=== PATIENT | male | born 1985 | race African-American/Black ===

== ENCOUNTER 2016-12-25 07:51 | Emergency (ER) | payer OTHER ==
[~2016-12-25] VITALS: Ht 180.3 cm; Wt 77.1 kg
[~2016-12-25 07:51] MED LIST: ALBU0.0939 IH; PRED20TA5 PO
[2016-12-25 07:56] VITALS: BP 145/79
--- NOTE | 2016-12-25 07:59 | NUR ---
Patient ambulated to bed 07.
--- NOTE | 2016-12-25 08:00 | NUR ---
31/M BIB SELF C/O COUGH ,SOB AND SORE THROAT X2 DAYS. HX ASTHMA. PT STATES HAS DIARRHEA X2 EPISODES THIS MORNING. DENIES N/V; SKIN IS PINK/WARM/DRY; AAOX4 WITH EVEN AND STEADY GAIT; LUNGS CONGESTED BL; HR EVEN AND REGULAR; PATIENT STATES SORE THROAT ;PAIN OF 9/10 AT THIS TIME; VSS; PATIENT POSITIONED FOR COMFORT; HOB ELEVATED; BEDRAILS UP X2; BED DOWN. ER MD MADE AWARE OF PT STATUS.
[2016-12-25] MEDS ORDERED: ALBUTEROL SULFATE/IPRATROPIU 3 ML SOL IH ONE (08:05)
[2016-12-25] MEDS ORDERED: predniSONE 20 MG TAB PO ONE (08:05)
--- NOTE | 2016-12-25 08:10 | NUR ---
Kiko mccarthy in [facility] - 12/25/16 at 0855 by MED1 RT AT BEDSIDE
--- NOTE | 2016-12-25 08:10 | NUR ---
RT at bedside to give patient breathing treatment.
--- NOTE | 2016-12-25 08:12 | NUR ---
ER MD DR ATKINSON EVALUATING PT AT BEDSIDE.
--- NOTE | 2016-12-25 08:38 | NUR ---
Patient going to XRAY via wheelchair per tech.
--- NOTE | 2016-12-25 08:44 | NUR ---
Patient back from XRAY via wheelchair per tech.
[2016-12-25] MEDS ORDERED: PENICILLIN G BENZATHINE L-A 2.4 MU/4 ML SYR IM ONE (09:25)
[2016-12-25] MEDS ORDERED: ACETAMIN/CODEINE 120/12MG-5ML 5 ML UDC PO ONE (09:25)
[2016-12-25 09:45] VITALS: BP 120/68
--- NOTE | 2016-12-25 09:45 | NUR ---
Patient discharged with v/s stable. Written and verbal after care instructions given and explained. Patient alert, oriented and verbalized understanding of instructions. Ambulatory with steady gait. All questions addressed prior to discharge. ID band removed. Patient advised to follow up with PMD. Rx of TYLENOL W/ CODEINE, MEDROL DOSEPAK & ALBUTEROL given. Patient educated on indication of medication including possible reaction and side effects. Opportunity to ask questions provided and answered.
== END 2016-12-25 09:45 | disposition home or self-care (01) ==
LOC: MED 07:51
DX: J02.0 Streptococcal pharyngitis (principal); J45.901 Unspecified asthma with (acute) exacerbation; Z91.19 Patient's noncompliance with other medical treatment and regimen; Z88.8 Allergy status to other drugs, medicaments and biological substances
CPT/HCPCS: 36415; 71020; 87081; 87804; 94640; 96372; 99285; J0561; J7030; J7512; J7620

== ENCOUNTER 2017-01-13 07:36 | Emergency (ER) | payer OTHER ==
[~2017-01-13] VITALS: Ht 180.3 cm; Wt 78.5 kg
[2017-01-13 07:51] VITALS: BP 127/77
--- NOTE | 2017-01-13 07:58 | NUR ---
Patient ambulated to bed 3. RN evaluating patient at bedside.
--- NOTE | 2017-01-13 08:11 | NUR ---
31/M TO ED WITH C/O CHEST CONGESTION AND SOB X1 DAY. PT STATES HE DOESNT HAVE ASTHMA MEDS AT HOME. CHEST CONGESTION PAIN /. STATES HE HAS PRODUCTIVE COUGH. WHEEZING HEARD BILAT UPON EXPIRATION. HR EVEN AND REGULAR. AAOX4. VSS. NO SIGNS OF DISTRESS.
[2017-01-13] MEDS: ALBUTEROL SULFATE/IPRATROPIU 3 ML SOL IH ONE (08:40)
[2017-01-13] MEDS: predniSONE 20 MG TAB PO ONE (09:06)
[2017-01-13 10:08] VITALS: BP 127/77
--- NOTE | 2017-01-13 10:08 | NUR ---
Patient discharged with v/s stable. Written and verbal after care instructions given and explained. Patient alert, oriented and verbalized understanding of instructions. Ambulatory with steady gait. All questions addressed prior to discharge. ID band removed. Patient advised to follow up with PMD. Rx of MEDROL given. Patient educated on indication of medication including possible reaction and side effects. Opportunity to ask questions provided and answered.
== END 2017-01-13 10:08 | disposition home or self-care (01) ==
LOC: MED 07:36
DX: J45.901 Unspecified asthma with (acute) exacerbation (principal); Z88.8 Allergy status to other drugs, medicaments and biological substances
CPT/HCPCS: 71020; 94640; 99284; J7512; J7620

== ENCOUNTER 2018-09-16 03:10 | Emergency (ER) | payer OTHER ==
[~2018-09-16] VITALS: Ht 180.3 cm; Wt 79.4 kg
[2018-09-16 03:19] VITALS: BP 145/75
--- NOTE | 2018-09-16 03:19 | NUR ---
PT TAKEN TO BED 9
--- NOTE | 2018-09-16 03:25 | NUR ---
PT TO ED WITH C/O SOB AND CONGESTION X 2 DAYS. PT REPROTS INCREASING CONGESTION OVER 2 DAYS. PT REPORTS THAT HE IS OUT OF HOME RX. NO DISTRESS NOTED. PT ABLE TO SPEAK IN FULL SENTECES WITHOUT DIFFICULTY. LUNG SOUNDS CLEAR BILATERALLY. PT PLACED INTO BED, PENDING MD ROMERO. ER MD YIP MADE AWARE OF PT STATUS. PMH--ASTHMA RX--ALBUTEROL, ATROVENT, PREDNISONE
--- NOTE | 2018-09-16 03:30 | NUR ---
Dr. Koroma evaluating patient at bedside.
[2018-09-16] MEDS ORDERED: ALBUTEROL SULFATE/IPRATROPIU 3 ML SOL IH ONE (03:40)
--- NOTE | 2018-09-16 03:40 | NUR ---
Respiratory Therapist at bedside for respiratory intervention.
[2018-09-16 03:54] VITALS: BP 145/75
--- NOTE | 2018-09-16 03:55 | NUR ---
Patient discharged with v/s stable. Written and verbal after care instructions given and explained. Patient alert, oriented and verbalized understanding of instructions. Ambulatory with steady gait. All questions addressed prior to discharge. ID band removed. Patient advised to follow up with PMD. Rx of PREDNISONE, ALBUTEROL, ATROVENT given. Patient educated on indication of medication including possible reaction and side effects. Opportunity to ask questions provided and answered.
== END 2018-09-16 03:55 | disposition home or self-care (01) ==
LOC: MED 03:10
DX: J45.901 Unspecified asthma with (acute) exacerbation (principal); R03.0 Elevated blood-pressure reading, without diagnosis of hypertension; Z79.899 Other long term (current) drug therapy; Z88.8 Allergy status to other drugs, medicaments and biological substances
CPT/HCPCS: 94640; 99283; J7620

== ENCOUNTER 2019-07-22 00:24 | Emergency (ER) | payer OTHER ==
[~2019-07-22] VITALS: Ht 180.3 cm; Wt 83.0 kg
[2019-07-22 00:40] VITALS: BP 137/83
--- NOTE | 2019-07-22 00:40 | NUR ---
TO BED # 06 AMBULATORY
--- NOTE | 2019-07-22 00:50 | NUR ---
34 Y/O MALE ARRIVED TO ED C/O DIFFICULTY BREATHING X 3-4 DAYS. DENIES ANY FEVER, N,V,D. DENIES PAIN. LUNG SOUNDS WHEEZING ON RIGHT LOBE, LEFT LOBE CLEAR. NO RESP DISTRESS NOTED. NO USE OF ACCESSORY MUSCLE. SPO2 98% RA. VSS. COUGH WITH PRODUCTIVE PHLEGM PRESENT. ALLERGIES: ROBUTUSSIN. PMH: ASTHMA, MARIJUANA USE.
[2019-07-22] MEDS ORDERED: ALBUTEROL SULFATE/IPRATROPIU 3 ML SOL IH ONE (01:05)
--- NOTE | 2019-07-22 01:06 | NUR ---
RT AT BEDSIDE.
[2019-07-22 01:38] VITALS: BP 137/83
--- NOTE | 2019-07-22 01:38 | NUR ---
Patient discharged with v/s stable. Written and verbal after care instructions given and explained. Patient alert, oriented and verbalized understanding of instructions. Ambulatory with steady gait. All questions addressed prior to discharge. ID band removed. Patient advised to follow up with PMD. Rx of PREDNISONE, ALBUTEROL AEROSOL, ALBUTEROL SULFATE ADE, ATROVENT given. Patient educated on indication of medication including possible reaction and side effects. Opportunity to ask questions provided and answered.
== END 2019-07-22 01:38 | disposition home or self-care (01) ==
LOC: MED 00:24
DX: J45.901 Unspecified asthma with (acute) exacerbation (principal); R03.0 Elevated blood-pressure reading, without diagnosis of hypertension; F12.10 Cannabis abuse, uncomplicated; Z88.8 Allergy status to other drugs, medicaments and biological substances; Z79.899 Other long term (current) drug therapy
CPT/HCPCS: 94640; 99283; J7620

== ENCOUNTER 2019-12-23 08:48 | Emergency (ER) | payer OTHER ==
[~2019-12-23] VITALS: Ht 180.3 cm; Wt 82.6 kg
[2019-12-23 08:52] VITALS: BP 137/76
--- NOTE | 2019-12-23 09:00 | NUR ---
PT TO ER BED 4
--- NOTE | 2019-12-23 09:04 | NUR ---
34 YO MALE CO SOB D/T ASTHMA SINCE YESTERDAY. PT TAKES ALBUTEROL, ATROVENT AND PREDNISONE AT HOME BUT IS CURRENTLY OUT OF MEDS. BL WHEEZES IN THE LOWER BASES HEARD. O2 LEVELS STABLE. PT HAS SYMMETRICAL CHEST RISE. PT HAS ASTHMA BUT NO OTHER HX.
--- NOTE | 2019-12-23 09:10 | NUR ---
DR. THOMPSON IS EVALUATING AT BEDSIDE.
[2019-12-23 09:23] VITALS: BP 137/76
--- NOTE | 2019-12-23 09:24 | NUR ---
Patient discharged with v/s stable. Written and verbal after care instructions given and explained. Patient alert, oriented and verbalized understanding of instructions. Ambulatory with steady gait. All questions addressed prior to discharge. ID band removed. Patient advised to follow up with PMD. Rx of ALBUTEROL, DUONEB, ATROVENT, ALBUTEROL SULFATE AND PREDNISONE given. Patient educated on indication of medication including possible reaction and side effects. Opportunity to ask questions provided and answered.
== END 2019-12-23 09:24 | disposition home or self-care (01) ==
LOC: MED 08:48
DX: J45.901 Unspecified asthma with (acute) exacerbation (principal); Z79.899 Other long term (current) drug therapy; Z88.8 Allergy status to other drugs, medicaments and biological substances
CPT/HCPCS: 99283

== ENCOUNTER 2020-05-07 22:07 | Emergency (ER) | payer OTHER ==
[~2020-05-07] VITALS: Ht 180.3 cm; Wt 85.7 kg
[2020-05-07 22:22] VITALS: BP 110/75
--- NOTE | 2020-05-07 22:31 | NUR ---
PT HAS HX OF ASTHMA AND RAN OUT OF HIS MEDS YESTERDAY. HAS BEEN HAVING WHEEZING AND COUGHING FOR PAST DAY. AFEBRILE, DENIES SOB, O2 SAT 98% ON ROOM AIR. WHEEZING NOTED UPON AUSCULTATION. BED PLACED IN LOWEST POSITION AND SIDERAIL UP X 1. ALLERGY - ROBITUSSIN HX - ASTHMA
[2020-05-07] MEDS: predniSONE 20 MG TAB PO ONE (23:41)
--- NOTE | 2020-05-07 23:41 | NUR ---
RESPIRATORY AT BEDSIDE
[2020-05-07] MEDS: ALBUTEROL 0.083% 2.5 MG/3 ML NEBU INH ONE (23:42)
[2020-05-07] MEDS: ALBUTEROL SULFATE/IPRATROPIU 3 ML SOL IH ONE (23:50)
[2020-05-08 00:11] VITALS: BP 110/75
--- NOTE | 2020-05-08 00:12 | NUR ---
Patient discharged with v/s stable. Written and verbal after care instructions given and explained. Patient alert, oriented and verbalized understanding of instructions. Ambulatory with steady gait. All questions addressed prior to discharge. ID band removed. Patient advised to follow up with PMD. Rx of ATROVENT AND PREDNISONE given. Patient educated on indication of medication including possible reaction and side effects. Opportunity to ask questions provided and answered.
== END 2020-05-08 00:11 | disposition home or self-care (01) ==
LOC: MED 22:07
DX: J45.901 Unspecified asthma with (acute) exacerbation (principal); F12.90 Cannabis use, unspecified, uncomplicated; Z79.899 Other long term (current) drug therapy; Z88.8 Allergy status to other drugs, medicaments and biological substances
CPT/HCPCS: 94640; 99283; J7512; J7613

== ENCOUNTER 2020-12-15 06:38 | Emergency (ER) | payer OTHER ==
[~2020-12-15] VITALS: Ht 182.9 cm; Wt 88.5 kg
[2020-12-15 06:44] VITALS: BP 136/82
--- NOTE | 2020-12-15 06:44 | NUR ---
TO BED AMBULATORY
--- NOTE | 2020-12-15 06:55 | NUR ---
35 Y/O MALE C/O MED REFILL. PT STATES CHEST TIGHTNESS, SHARP 8/10 PAIN SINCE YESTERDAY. LUNG SOUNDS WHEEZING. STATES HE RAN OUT OF HIS ASTHMA MEDICATIONS. VSS. ON ROOM AIR. DENIES RECENT FEVER. MEDHX: ASTHMA ALLERGIES: GUAIFENESIN
--- NOTE | 2020-12-15 07:07 | NUR ---
Dr. Galo examining patient.
[2020-12-15] MEDS ORDERED: ALBUTEROL SULFATE/IPRATROPIU 3 ML SOL IH ONE (07:10)
[2020-12-15] MEDS ORDERED: predniSONE 20 MG TAB PO ONE (07:10)
--- NOTE | 2020-12-15 07:13 | NUR ---
Pt report given to KHOI CASTANEDA. Transfer of care at this time.
--- NOTE | 2020-12-15 07:14 | NUR ---
HANDOFF RECEIVED FROM PROGRAM STRATEGIST LEONEL MURPHY FOR CONTINUITY OF CARE
--- NOTE | 2020-12-15 07:20 | NUR ---
[facility] THERAPY AND RESPIRATORY DRUG GIVEN ORDERED
--- NOTE | 2020-12-15 07:21 | NUR ---
PT ALERT AND ORIENTED X4, SITTING UP IN BED. RT AT BEDSIDE ADMINISTERING BREATHING TREATMENT. MEDICATIONS ADMINISTERED PER ORDER, PT TOLERATED WELL.
[2020-12-15] MEDS ORDERED: PRED20TA5 PO (07:39)
[2020-12-15] MEDS ORDERED: ALBU0.63 NEB (07:39)
[2020-12-15] MEDS ORDERED: ATRMDI IH (07:39)
[2020-12-15] MEDS ORDERED: ALBU0.0912 IH (07:39)
--- NOTE | 2020-12-15 07:48 | NUR ---
Patient discharged with v/s stable. Written and verbal after care instructions given and explained. Patient alert, oriented and verbalized understanding of instructions. Ambulatory with steady gait. All questions addressed prior to discharge. ID band removed. Patient advised to follow up with PMD. Rx of prednisone, ventolin, atrovent, and albuterol given. Patient educated on indication of medication including possible reaction and side effects. Opportunity to ask questions provided and answered.
[2020-12-15 07:49] VITALS: BP 136/82
== END 2020-12-15 07:48 | disposition home or self-care (01) ==
LOC: MED 06:38
DX: J45.909 Unspecified asthma, uncomplicated (principal); Z76.0 Encounter for issue of repeat prescription; Z88.8 Allergy status to other drugs, medicaments and biological substances; Z79.899 Other long term (current) drug therapy
CPT/HCPCS: 94640; 99283; J7512

== ENCOUNTER 2021-01-17 07:20 | Emergency (ER) | payer OTHER ==
[~2021-01-17] VITALS: Ht 182.9 cm; Wt 87.1 kg
[~2021-01-17 07:20] MED LIST changes: +ALBU0.0912 IH; +ALBU0.63 NEB; +ATRMDI IH
[2021-01-17 07:23] VITALS: BP 139/72
[2021-01-17] MEDS ORDERED: ALBUTEROL SULFATE/IPRATROPIU 3 ML SOL IH ONE (07:35)
[2021-01-17] MEDS ORDERED: predniSONE 20 MG TAB PO ONE (07:35)
[2021-01-17] MEDS ORDERED: PRED20TA5 PO (07:41)
[2021-01-17] MEDS ORDERED: ATRN INH (07:41)
[2021-01-17] MEDS ORDERED: ALBU-71 NEB (07:41)
[2021-01-17] MEDS ORDERED: ALBU0.0912 IH (07:41)
[2021-01-17 08:09] VITALS: BP 139/72
== END 2021-01-17 08:10 | disposition home or self-care (01) ==
LOC: MED 07:20
DX: J45.901 Unspecified asthma with (acute) exacerbation (principal); Z76.0 Encounter for issue of repeat prescription; Z88.8 Allergy status to other drugs, medicaments and biological substances; Z79.899 Other long term (current) drug therapy
CPT/HCPCS: 94640; 99283; J7512

== ENCOUNTER 2021-03-02 07:24 | Emergency (ER) | payer OTHER ==
[~2021-03-02] VITALS: Ht 180.3 cm; Wt 93.0 kg
[~2021-03-02 07:24] MED LIST changes: +ALBU-71 NEB; +ATRN INH
[2021-03-02 07:35] VITALS: BP 147/85
--- NOTE | 2021-03-02 07:39 | NUR ---
PT AMBULATED TO BED 9.
--- NOTE | 2021-03-02 07:54 | NUR ---
Pt bib self for right ankle pain. Per pt he was roller skating last night and fell. Denies hitting head. Denies LOC. Denies N/V. Pt elevated extremity, applied ice, and took Motrin 800mg at 0030. Current pain level 9/10, throbbing pain. Swelling noted to right ankle. Allergies: guaifenesin Med hx: asthma
--- NOTE | 2021-03-02 07:55 | NUR ---
MD Rojas evaluating pt at bedside
--- NOTE | 2021-03-02 08:16 | NUR ---
Xray at bedside
[2021-03-02] MEDS ORDERED: IBUP-2213 PO (08:50)
--- NOTE | 2021-03-02 09:07 | NUR ---
Patient discharged with v/s stable. Written and verbal after care instructions given and explained. Patient alert, oriented and verbalized understanding of instructions. Ambulatory with steady gait. All questions addressed prior to discharge. ID band removed. Patient advised to follow up with PMD. Rx of Motrin 600mg was given. Patient educated on indication of medication including possible reaction and side effects. Opportunity to ask questions provided and answered.
[2021-03-02 09:08] VITALS: BP 132/86
== END 2021-03-02 09:07 | disposition home or self-care (01) ==
LOC: MED 07:24
DX: S93.491A Sprain of other ligament of right ankle, initial encounter (principal); W18.39XA Other fall on same level, initial encounter; Y93.89 Activity, other specified; Y92.89 Other specified places as the place of occurrence of the external cause; Y99.8 Other external cause status
CPT/HCPCS: 73610; 99283

== ENCOUNTER 2021-03-07 07:03 | Emergency (ER) | payer OTHER ==
[~2021-03-07] VITALS: Ht 180.3 cm; Wt 89.8 kg
[~2021-03-07 07:03] MED LIST changes: +IBUP-2213 PO
[2021-03-07 07:08] VITALS: BP 131/78
--- NOTE | 2021-03-07 07:12 | NUR ---
Patient ambulated to bed 7. RN evaluating the patient at bedside.
--- NOTE | 2021-03-07 07:16 | NUR ---
Dr. Piña at pt bedside for further evaluation.
--- NOTE | 2021-03-07 07:24 | NUR ---
35/M presents to ED with c/o right ankle pain. Patient states he "sprained" his ankle one week ago and was icing the site daily, stating he got an "ice burn" on his right ankle. Water filled blister noted to right ankle, patient states 6/10 sharp constant pain that worsens with ambulation. Reports taking motrin at home with mild relief, denies fever, chills. Patient able to ambulate without assistance with steady gait.
[2021-03-07 07:28] VITALS: BP 131/78
--- NOTE | 2021-03-07 07:29 | NUR ---
Patient discharged with v/s stable. Written and verbal after care instructions given and explained. Patient verbalized understanding. Ambulatory with steady gait. All questions addressed prior to discharge. Advised to follow up with PMD.
== END 2021-03-07 07:29 | disposition home or self-care (01) ==
LOC: MED 07:03
DX: S93.401A Sprain of unspecified ligament of right ankle, initial encounter (principal); F12.10 Cannabis abuse, uncomplicated; J45.909 Unspecified asthma, uncomplicated; Z88.8 Allergy status to other drugs, medicaments and biological substances; X58.XXXA Exposure to other specified factors, initial encounter; Y93.89 Activity, other specified; Y92.89 Other specified places as the place of occurrence of the external cause; Y99.8 Other external cause status
CPT/HCPCS: 99281

== ENCOUNTER 2021-03-21 08:09 | Emergency (ER) | payer OTHER ==
[~2021-03-21] VITALS: Ht 180.3 cm; Wt 92.1 kg
[2021-03-21 08:19] VITALS: BP 139/82
--- NOTE | 2021-03-21 08:29 | NUR ---
Patient to lobby for open available bed.
--- NOTE | 2021-03-21 09:42 | NUR ---
WENT OUT TO CALL FOR [facility] AND PT WAS NOT FOUND IN LOBBY. WENT OUTSIDE AND LOOKED IN COVID TENT, NO ONE OUTSIDE. PATIENT LEFT WITHOUT BEING SEEN BY DR. ROUSSEAU. NO FURTHER CARE PROVIDED FOR PATIENT.
== END 2021-03-21 09:42 | disposition left against medical advice (07) ==
LOC: MED 08:09
DX: R06.02 Shortness of breath (principal); Z53.21 Procedure and treatment not carried out due to patient leaving prior to being seen by health care provider

== ENCOUNTER 2021-04-08 06:14 | Emergency (ER) | payer OTHER ==
[~2021-04-08] VITALS: Ht 180.3 cm; Wt 86.2 kg
[2021-04-08 06:22] VITALS: BP 134/79
--- NOTE | 2021-04-08 06:24 | NUR ---
To ED bed 01
[2021-04-08] MEDS ORDERED: ALBUTEROL 0.083% 2.5 MG/3 ML NEBU INH ONE (06:30)
[2021-04-08] MEDS ORDERED: predniSONE 20 MG TAB PO ONE (06:30)
--- NOTE | 2021-04-08 06:30 | NUR ---
36 YO/M BIB SELF W C/O OF ASTHMA EXACCERBATION REPORTING SOB, WHEEZING, AND MILD COUGHING OF PHLEGM X2DAYS. PATIENT DENIES PAIN OR CHEST PAIN. EXPIRATORY WHEEZING AUSCULTATED. BREATHING EVEN AND UNLABORED CONNECTED TO MONITOR W 17RR, 99O2 SAT, 70HR. PATIENT DENIES ANY FEVER N/V/D. PATIENT SPEAKING IN FULL SENTENCES. PATIENT SITTING IN BED USING HIS PHONE. BED LOCKED IN LOWEST POSITION X1 SIDERAIL UP. NAD NOTED, WILL CONTINUE TO MONITOR. PMH:ASTHMA ALLERGIES: GUAIFENESIN
[2021-04-08] MEDS ORDERED: ATRMDI IH (06:37)
[2021-04-08] MEDS ORDERED: ATRN INH (06:37)
[2021-04-08] MEDS ORDERED: ALBU-71 NEB (06:37)
[2021-04-08] MEDS ORDERED: ALBU0.0912 IH (06:37)
[2021-04-08] MEDS ORDERED: PRED20TA5 PO (06:37)
--- NOTE | 2021-04-08 06:40 | NUR ---
[facility] THERAPY AND RESPIRATORY DRUG GIVEN ORDERED
[2021-04-08] MEDS ORDERED: FLO110 IH (07:06)
--- NOTE | 2021-04-08 07:08 | NUR ---
PATIENT REPORTS NO MORE SOB S/P PREDNISONE AND BREATHING TREATMENT.
[2021-04-08 07:09] VITALS: BP 134/79
--- NOTE | 2021-04-08 07:09 | NUR ---
Patient discharged with v/s stable. Written and verbal after care instructions given and explained. Patient alert, oriented and verbalized understanding of instructions. Ambulatory with steady gait. All questions addressed prior to discharge. ID band removed. Patient advised to follow up with PMD. Rx of ALBUTEROL SULFATE, IPRATROPIUM BROMIDE, PREDNISONE given. Patient educated on indication of medication including possible reaction and side effects. Opportunity to ask questions provided and answered.
== END 2021-04-08 07:09 | disposition home or self-care (01) ==
LOC: MED 06:14
DX: J45.901 Unspecified asthma with (acute) exacerbation (principal); Z88.1 Allergy status to other antibiotic agents; Z79.899 Other long term (current) drug therapy
CPT/HCPCS: 94640; 99283; J7512; J7613

== ENCOUNTER 2021-09-14 03:31 | Emergency (ER) | payer OTHER ==
[~2021-09-14] VITALS: Ht 180.3 cm; Wt 95.3 kg
[~2021-09-14 03:31] MED LIST changes: +FLO110 IH
[2021-09-14 03:35] VITALS: BP 124/76
[2021-09-14] MEDS ORDERED: ALBUTEROL SULFATE/IPRATROPIU 3 ML SOL IH ONE (03:40)
[2021-09-14] MEDS ORDERED: predniSONE 20 MG TAB ONE (03:58)
[2021-09-14] MEDS ORDERED: predniSONE 20 MG TAB PO ONE (04:00)
[2021-09-14] MEDS ORDERED: ATRN INH (04:18)
[2021-09-14] MEDS ORDERED: ALBU0.0912 IH (04:18)
[2021-09-14] MEDS ORDERED: ALBU-71 NEB (04:18)
[2021-09-14] MEDS ORDERED: ATRMDI IH (04:18)
[2021-09-14] MEDS ORDERED: PRED20TA5 PO (04:18)
[2021-09-14] MEDS ORDERED: FLO110 IH (04:19)
[2021-09-14 04:22] VITALS: BP 124/76
--- NOTE | 2021-09-14 04:22 | NUR ---
Patient discharged with v/s stable. Written and verbal after care instructions given and explained. Patient alert, oriented and verbalized understanding of instructions. Ambulatory with steady gait. All questions addressed prior to discharge. ID band removed. Patient advised to follow up with PMD. Rx of ALBUTEROL, PROVENTIL, ATROVENT MDI, ATROVENT NEB, FLOVENT, DELTASONE given. Patient educated on indication of medication including possible reaction and side effects. Opportunity to ask questions provided and answered.
== END 2021-09-14 04:22 | disposition home or self-care (01) ==
LOC: MED 03:31
DX: J45.901 Unspecified asthma with (acute) exacerbation (principal); Z79.899 Other long term (current) drug therapy; Z79.1 Long term (current) use of non-steroidal anti-inflammatories (NSAID); Z79.51 Long term (current) use of inhaled steroids; Z88.8 Allergy status to other drugs, medicaments and biological substances
CPT/HCPCS: 94640; 99283; J7512

== ENCOUNTER 2021-11-16 06:11 | Emergency (ER) | payer OTHER ==
[~2021-11-16] VITALS: Ht 180.3 cm; Wt 93.9 kg
[2021-11-16 06:18] VITALS: BP 127/80
[2021-11-16] MEDS ORDERED: ALBUTEROL SULFATE/IPRATROPIU 3 ML SOL IH ONE ×2 (06:55→06:58)
[2021-11-16] MEDS ORDERED: predniSONE 20 MG TAB PO ONE (06:55)
[2021-11-16] MEDS ORDERED: ATRMDI IH (07:11)
[2021-11-16] MEDS ORDERED: ALBU0.0912 INH (07:11)
[2021-11-16] MEDS ORDERED: PRED20TA5 PO (07:11)
[2021-11-16 07:58] VITALS: BP 148/93
== END 2021-11-16 07:56 | disposition home or self-care (01) ==
LOC: MED 06:11
DX: J45.901 Unspecified asthma with (acute) exacerbation (principal); F12.90 Cannabis use, unspecified, uncomplicated; Z79.899 Other long term (current) drug therapy; Z88.8 Allergy status to other drugs, medicaments and biological substances
CPT/HCPCS: 71045; 94640; 94760; 99283; J7512; Q0092

== ENCOUNTER 2022-06-24 06:00 | Emergency (ER) | payer OTHER ==
[~2022-06-24] VITALS: Ht 180.3 cm; Wt 89.8 kg
[~2022-06-24 06:00] MED LIST changes: +ALBU0.0912 INH
[2022-06-24 06:11] VITALS: BP 149/89
--- NOTE | 2022-06-24 06:11 | NUR ---
TO BED AMBULATORY
[2022-06-24] MEDS ORDERED: ALBUTEROL 0.083% 2.5 MG/3 ML NEBU INH ONE (06:30)
[2022-06-24] MEDS ORDERED: predniSONE 20 MG TAB PO ONE (06:30)
--- NOTE | 2022-06-24 06:40 | NUR ---
RT AT BEDSIDE
[2022-06-24] MEDS ORDERED: ALBU0.0912 IH (06:46)
[2022-06-24] MEDS ORDERED: PRED20TA5 PO (06:46)
--- NOTE | 2022-06-24 07:00 | NUR ---
PATIENT STATED THAT HE WAS FEELING BETTER AND WAS READY TO GO HOME. ERMD MADE AWRE.
[2022-06-24 07:05] VITALS: BP 135/89
[2022-06-24] MEDS ORDERED: ALBU0.63 NEB (07:05)
--- NOTE | 2022-06-24 07:05 | NUR ---
Patient discharged with v/s stable. Written and verbal after care instructions given and explained. Patient alert, oriented and verbalized understanding of instructions. Ambulatory with steady gait. All questions addressed prior to discharge. ID band removed. Patient advised to follow up with PMD. Rx of ALBUTEROL, AND PREDNISONE given. Patient educated on indication of medication including possible reaction and side effects. Opportunity to ask questions provided and answered.
== END 2022-06-24 07:05 | disposition home or self-care (01) ==
LOC: MED 06:00
DX: J45.901 Unspecified asthma with (acute) exacerbation (principal)
CPT/HCPCS: 94640; 94760; 99283; J7512; J7613

== ENCOUNTER 2022-10-21 07:40 | Emergency (ER) | payer OTHER ==
[~2022-10-21] VITALS: Ht 180.3 cm; Wt 83.9 kg
[2022-10-21 07:44] VITALS: BP 135/89
--- NOTE | 2022-10-21 08:25 | NUR ---
ASSUMED PATIENT CARE, CONCUR TO PRIOR NURSING ASSESSMENTS.
[2022-10-21] MEDS: predniSONE 20 MG TAB PO ONE (08:32)
[2022-10-21] MEDS: ALBUTEROL 0.083% 2.5 MG/3 ML NEBU INH ONE (08:55)
[2022-10-21] MEDS ORDERED: ALBU0.0912 INH (09:28)
[2022-10-21] MEDS ORDERED: PRED20TA5 PO (09:28)
[2022-10-21] MEDS ORDERED: FLUT1DSK2 IH (09:28)
--- NOTE | 2022-10-21 09:31 | NUR ---
DR HAMMOND AT BEDSIDE, UPDATING PATIENT ACCORDINGLY.
[2022-10-21] MEDS ORDERED: ATRN INH (09:34)
[2022-10-21] MEDS ORDERED: PRON INH (09:34)
[2022-10-21 09:35] VITALS: BP 135/89
== END 2022-10-21 09:35 | disposition home or self-care (01) ==
LOC: MED 07:40
DX: J45.901 Unspecified asthma with (acute) exacerbation (principal); Z79.899 Other long term (current) drug therapy; Z79.1 Long term (current) use of non-steroidal anti-inflammatories (NSAID); Z88.8 Allergy status to other drugs, medicaments and biological substances
CPT/HCPCS: 94640; 99283; J7512; J7613

== ENCOUNTER 2022-12-03 09:07 | Emergency (ER) | payer OTHER ==
[~2022-12-03] VITALS: Ht 180.3 cm; Wt 89.8 kg
[~2022-12-03 09:07] MED LIST changes: +FLUT1DSK2 IH; +PRON INH
[2022-12-03 09:15] VITALS: BP 138/86
--- NOTE | 2022-12-03 09:19 | NUR ---
PT AMBULATED TO CHAIR C.
[2022-12-03] MEDS ORDERED: ALBUTEROL 0.083% 2.5 MG/3 ML NEBU INH ONE (09:25)
[2022-12-03] MEDS ORDERED: predniSONE 20 MG TAB PO ONE (09:25)
[2022-12-03] MEDS ORDERED: ALBU0.0912 IH (10:21)
[2022-12-03] MEDS ORDERED: PRED20TA5 PO (10:21)
[2022-12-03] MEDS ORDERED: PRON INH (10:21)
[2022-12-03] MEDS ORDERED: FLO110 IH (10:32)
[2022-12-03 10:52] VITALS: BP 138/86
--- NOTE | 2022-12-03 10:54 | NUR ---
Patient discharged with v/s stable. Written and verbal after care instructions given and explained. Patient alert, oriented and verbalized understanding of instructions. Ambulatory with steady gait. All questions addressed prior to discharge. ID band removed. Patient advised to follow up with PMD. Rx of albuterol/ proventil given. Patient educated on indication of medication including possible reaction and side effects. Opportunity to ask questions provided and answered.
== END 2022-12-03 10:52 | disposition home or self-care (01) ==
LOC: MED 09:07
DX: J45.901 Unspecified asthma with (acute) exacerbation (principal); Z79.899 Other long term (current) drug therapy; Z88.8 Allergy status to other drugs, medicaments and biological substances
CPT/HCPCS: 94640; 99283; J7512; J7613

== ENCOUNTER 2023-08-17 06:14 | Emergency (ER) | payer OTHER ==
[~2023-08-17] VITALS: Ht 182.9 cm; Wt 81.2 kg
[2023-08-17 06:20] VITALS: BP 124/83; PULSE 102; RESP 22; TEMP 97.9; O2SAT 97
[2023-08-17] MEDS ORDERED: DEXAMETHASONE 10 MG/ML VIAL IVP ONE (07:05)
[2023-08-17] MEDS ORDERED: ONDANSETRON 4 MG/2 ML VIAL IVP ONE (07:05)
[2023-08-17] MEDS ORDERED: ALBUTEROL 0.083% 2.5 MG/3 ML NEBU INH ONE ×3 (07:05→09:39)
[2023-08-17] MEDS ORDERED: IPRATROPIUM 0.02% 0.5 MG/2.5 ML NEBU INH ONE ×2 (07:05→08:40)
[2023-08-17] MEDS ORDERED: NACL 0.9% 1,000 ML IV ONE ×2 (07:05→08:40)
[2023-08-17 07:18] VITALS: PULSE 97; RESP 22; O2SAT 97
[2023-08-17 07:29] LABS: BASOPHILS # (AUTO) 0.1 K/uL (0.00-0.22); BASOPHILS % (AUTO) 0.9 % (0.0-2.0); EOSINOPHILS # (AUTO) 0.1 K/uL (0-0.4); EOSINOPHILS % (AUTO) 1.2 % (0.0-4.0); HEMATOCRIT 41.7 % (36-52); HEMOGLOBIN 14.6 g/dL (12.0-18.0); LYMPHOCYTES # (AUTO) 1.7 K/uL (2.0-11.5); LYMPHOCYTES % (AUTO) 17.2 % (20.5-51.1); MEAN CORPUSCULAR HEMOGLOBIN 32 pg (27-31); MEAN CORPUSCULAR HGB CONC 35 g/dL (33-37); MEAN CORPUSCULAR VOLUME 90.3 fL (80-94); MONOCYTES # (AUTO) 1.3 K/uL (0.8-1.0); MONOCYTES % (AUTO) 12.9 % (1.7-9.3); NEUTROPHILS # (AUTO) 6.7 K/uL (1.8-7.7); NEUTROPHILS % (AUTO) 67.8 % (42.2-75.2); PLATELET COUNT (AUTO) 318 K/uL (140-450); RED BLOOD CELL COUNT(AUTO) 4.62 MIL/uL (4.20-6.10); RED CELL DISTRIBUTION WIDTH 12.9 % (11.6-13.7); WHITE BLOOD COUNT (AUTO) 9.9 K/uL (4.8-10.8)
[2023-08-17 07:45] LABS: ANION GAP 16.9 (8-16); CALCIUM 9.5 mg/dL (8.5-10.1); CARBON DIOXIDE 25.6 mmol/L (21-32); POTASSIUM 3.5 mmol/L (3.5-5.1)
[2023-08-17] MEDS ORDERED: ALBU0.0912 IH (08:49)
[2023-08-17] MEDS ORDERED: PRON INH (08:49)
[2023-08-17] MEDS ORDERED: FLO110 IH (08:49)
[2023-08-17] MEDS ORDERED: LORA1T1237 PO (08:49)
[2023-08-17] MEDS ORDERED: ATRN INH (08:49)
[2023-08-17] MEDS ORDERED: DEC4 PO (08:49)
[2023-08-17 09:36] VITALS: PULSE 85; RESP 18; O2SAT 95
[2023-08-17 09:48] LABS: FLU A ANTIGEN negative (NEGATIVE)
[2023-08-17 09:50] LABS: FLU B ANTIGEN POSITIVE (NEGATIVE)
[2023-08-17] MEDS ORDERED: TAM75 PO (09:56)
[2023-08-17 10:20] VITALS: BP 126/88; PULSE 93; RESP 20; TEMP 36.55848; O2SAT 98
== END 2023-08-17 10:20 | disposition home or self-care (01) ==
LOC: MED 06:14
DX: J45.901 Unspecified asthma with (acute) exacerbation (principal); J10.1 Influenza due to other identified influenza virus with other respiratory manifestations; Z20.822 Contact with and (suspected) exposure to COVID-19; F12.90 Cannabis use, unspecified, uncomplicated; Z79.899 Other long term (current) drug therapy; Z79.1 Long term (current) use of non-steroidal anti-inflammatories (NSAID); Z88.8 Allergy status to other drugs, medicaments and biological substances
CPT/HCPCS: 36415; 71045; 80048; 85025; 87426; 87804; 94640; 96361; 96374; 96375; 99284; J1100; J2405; J7030; J7613; J7644

== ENCOUNTER 2024-02-01 07:20 | Emergency (ER) | payer OTHER ==
[~2024-02-01] VITALS: Ht 180.3 cm; Wt 90.3 kg
[~2024-02-01 07:20] MED LIST changes: +DEC4 PO; -FLO110 IH; +FLUT12AE5 IH; +LORA1T1237 PO; +TAM75 PO
[2024-02-01 07:30] VITALS: BP 130/82; PULSE 74; RESP 19; TEMP 98.1; O2SAT 99
[2024-02-01] MEDS ORDERED: ALBU0.0912 IH (07:48)
[2024-02-01] MEDS ORDERED: PRED20TA5 PO (07:48)
[2024-02-01] MEDS: ALBUTEROL SULFATE/IPRATROPIU 3 ML SOL IH ONE (07:58)
[2024-02-01] MEDS: ALBUTEROL 0.083% 2.5 MG/3 ML NEBU INH ONE (07:58)
[2024-02-01] MEDS: predniSONE 20 MG TAB PO ONE (08:03)
[2024-02-01] MEDS ORDERED: PRON INH (08:16)
== END 2024-02-01 08:28 | disposition home or self-care (01) ==
LOC: MED 07:20
DX: J45.901 Unspecified asthma with (acute) exacerbation (principal); R03.0 Elevated blood-pressure reading, without diagnosis of hypertension; Z79.1 Long term (current) use of non-steroidal anti-inflammatories (NSAID); Z79.899 Other long term (current) drug therapy; Z88.8 Allergy status to other drugs, medicaments and biological substances
CPT/HCPCS: 94640; 99283; J7512; J7613

== ENCOUNTER 2024-05-14 07:03 | Emergency (ER) | payer OTHER | END 2024-05-14 08:02 | disposition left against medical advice (07) | LOC: MED 07:03 | DX: J45.909 Unspecified asthma, uncomplicated (principal); Z53.21 Procedure and treatment not carried out due to patient leaving prior to being seen by health care provider ==